=== PATIENT | female | born 1940 | race Caucasian/White ===

== ENCOUNTER 2017-12-24 13:09 | Emergency (ER) | payer OTHER, BC ==
--- NOTE | 2017-12-24 13:36 | EDPHY ---
H & P Time Seen by Provider: 12/24/17 13:19 HPI/ROS: This patient sustained a left knee/leg injury from stepping backward off a ladder yesterday. She explains that she thought she was on the 1st rung of a ladder when she was actually the 2nd rung and was surprised to step back much further than anticipated causing hyper extension injury of the left knee with abrupt pain to the lateral aspect of the knee at the joint line radiating into the lateral leg. Since that time she has had ongoing mild leg pain at any pain at baseline becomes 9/10 severity with weight-bearing. She took aspirin this morning at 8:00 a.m. And again at noon with minimal relief and notes no other exacerbating factors. Her friend drove her here by private vehicle for further evaluation of the symptoms ROS: Neuro: No numbness or tingling. No head injury. Musculoskeletal: No neck or back pain Pulmonary: No chest wall pain, shortness of breath. Cardiovascular: No lightheadedness. Integumentary: No lacerations abrasions from her fall. 7 point ROS is otherwise negative. Past Medical/Surgical History: Left hip replacement SVT with ablation Depression Smoking Status: Former smoker Physical Exam: General Appearance: Alert, no distress. Eyes: Pupils equal and round no pallor or injection. ENT, Mouth: Mucous membranes moist. Respiratory: There are no retractions, lungs are clear to auscultation. Cardiovascular: Regular rate and rhythm. Gastrointestinal: Abdomen is soft and nontender, no masses, bowel sounds normal. Neurological: GCS 15 with no focal deficits. Skin: Warm and dry, no rashes. Musculoskeletal: Neck is supple nontender. Extremities are symmetrical, full range of motion. Exception of the left lower extremity. Left lower extremity: Patient has lateral left knee pain at the joint line with slight swelling. She has associated tenderness at the same area. Her tenderness extends down the entire left lateral leg. Van's exam is negative for laxity. Varus and valgus stress without laxity or pain. Psychiatric: Patient is oriented X 3, there is no agitation. DIFFERENTIAL DIAGNOSIS: After history and physical exam differential diagnosis was considered for tibial plateau fracture, fibular fracture, meniscal injury, muscle strain, ligamentous injury, contusion Constitutional: Initial Vital Signs Temperature (C) 36.7 C 12/24/17 13:18 Heart Rate 71 12/24/17 13:18 Respiratory Rate 18 12/24/17 13:18 Blood Pressure 152/50 H 12/24/17 13:18 O2 Sat (%) 93 12/24/17 13:18 O2 Delivery Mode Room Air Allergies/Adverse Reactions: No Known Allergies Allergy (Unverified 12/24/17 13:16) Home Medications: Medication Instructions Recorded Atorvastatin Calcium 12/24/17 Gabapentin 12/24/17 Lexapro 12/24/17 Meloxicam 12/24/17 traZODone 12/24/17 MDM/Departure - MDM Diagnostics: Three-view knee x-rays: Minimal DJD. Otherwise normal by my interpretation Tib-fib x-rays: Normal by my interpretation. Imaging Results: Imaging Impressions Knee X-Ray 12/24/17 13:30 Impression: 1. No definite fracture. 2. Mild osteoarthritis left knee. 3. Chondrocalcinosis. Tibia/Fibula X-Ray 12/24/17 13:31 Impression: No fracture of the left tibia or fibula. Imaging: I viewed and interpreted images myself ED Course/Re-evaluation: Patient declined analgesics here. We placed her in a neoprene knee brace, gave her crutches and crutch instructions Discussion: Patient here with knee hyper extension injury with inability to bear weight due to pain with weight-bearing with minimal discomfort at rest. No evidence of bony injury by radiographs or significant ligamentous injury by knee exam. Patient may have meniscal injury. Other possibilities in the differential diagnosis could be occult fracture. Will plan to send her home with nonweightbearing status with follow up with Dr. Velez-orthopedic physician on-call for further evaluation. - Depart Disposition: Home, Routine, Self-Care Clinical Impression: Knee hyperextension injury Qualifiers: Encounter type: initial encounter Laterality: left Qualified Code(s): S89.82XA - Other specified injuries of left lower leg, initial encounter Condition: Good Instructions: Crutch Instructions (ED) Additional Instructions: Diagnosis: Knee hyper extension injury Plan: Knee brace when up and about Tylenol and/or ibuprofen for pain if needed. Crutches-nonweightbearing until he follow up with Dr. Fraser-orthopedic physician for further evaluation. Return emergency department for any significant worsening despite treatment plan. Referrals: Vicky Llamas MD [Primary Care Provider] - As per Instructions Stevie Fraser MD [Medical Doctor] - As per Instructions
[2017-12-24] MEDS ORDERED: ACETAMINOPHEN 325 MG TAB PO ONE (14:57)
[2017-12-24 15:17] VITALS: BP 98/70
== END 2017-12-24 15:00 | disposition home or self-care (01) ==
LOC: CED 13:09
DX: S89.82XA Other specified injuries of left lower leg, initial encounter (principal); Z87.891 Personal history of nicotine dependence; W11.XXXA Fall on and from ladder, initial encounter
CPT/HCPCS: 73562; 73590; 99283; L1830

== ENCOUNTER → 2017-12-31 | Outpatient (CLI) | payer OTHER, BC | LOC: FIMAGING 13:57 | PROVIDERS: ATTEND Podiatrist Foot & Ankle Surgery | DX: M21.70 Unequal limb length (acquired), unspecified site (principal); Z96.643 Presence of artificial hip joint, bilateral ==

== ENCOUNTER → 2018-07-02 | Outpatient (CLI) | payer OTHER, BC | LOC: BHCLAF 13:15 | PROVIDERS: ATTEND Internal Medicine Cardiovascular Disease | DX: I25.10 Atherosclerotic heart disease of native coronary artery without angina pectoris (principal); R01.1 Cardiac murmur, unspecified | CPT/HCPCS: 93306-PO ==

== ENCOUNTER 2018-09-07 18:24 | Emergency (ER) | payer BC, OTHER ==
[2018-09-07] MEDS ORDERED: NS 1,000 ML IV ONE (19:04)
[2018-09-07] MEDS ORDERED: ACETAMINOPHEN 500 MG TAB PO ONE (19:08)
--- NOTE | 2018-09-07 19:10 | EDPHY ---
H & P Stated Complaint: N/D body aches, BUENO 2 days Time Seen by Provider: 09/07/18 18:34 HPI/ROS: This patient complains of"feeling lousy". She explains that she developed a combination of bothersome symptoms over the past 3 days consisting of mild by frontal headache, myalgias, low-grade fevers -99 at home, fatigue myalgias, loose watery stools 3-4 episodes a day and nausea without vomiting. She also reports onset of midline lumbar pain that is mild intensity-3/10 to 4/10. Her recent history is notable for an lumbar fusion on August 15 3 weeks ago without complications and she reports that her symptoms in her back and completely resolved prior to the past few days. She is concerned about potential infection at the back surgical site. ROS: Constitutional: No high fevers or chills HEENT: She denies any nasal congestion. No sore throat. Pulmonary: No cough or shortness of breath. Cardiovascular: No heart palpitations or lightheadedness. GI: No abdominal pain. She does have mild nausea. Loose stools 3-4 day over the past few days. : She reports a change in her urinary stream-less strong than usual without obvious dysuria. No flank pain. No hematuria Integumentary: No skin rash 10 point review of symptoms is performed and otherwise negative with exception of pertinent positives and negatives listed in HPI and ROS Source: Patient Exam Limitations: No limitations - Personal History Current Tetanus Diphtheria and Acellular Pertussis (TDAP): Yes - Medical/Surgical History Hx Asthma: No Hx Chronic Respiratory Disease: No Hx Diabetes: No Hx Cardiac Disease: Yes Hx Renal Disease: No Hx Cirrhosis: No Hx Alcoholism: No Hx HIV/AIDS: No Hx Splenectomy or Spleen Trauma: No Other PMH: LT and RT HIP REPLACED, ANTERIOR APPROACH, QUAD WEAK. ABLATION FOR SVT 2008. HX DEPRESSION, high cholestrol, osteoarthritis, spinal fusion . - Family History Significant Family History: No pertinent family hx - Social History Smoking Status: Former smoker Alcohol Use: None Drug Use: None - Physical Exam Exam: General Appearance: Alert, no distress. Eyes: Pupils equal and round no pallor or injection. ENT, Mouth: Mucous membranes moist. Respiratory: There are no retractions, lungs are clear to auscultation. Cardiovascular: Regular rate and rhythm. Gastrointestinal: Abdomen is soft and nontender, no masses, bowel sounds normal. Neurological: GCS 15 Skin: Warm and dry, no rashes. Musculoskeletal: Neck is supple nontender. Extremities are symmetrical, full range of motion. Psychiatric: Mood and affect are normal DIFFERENTIAL DIAGNOSIS: After history and physical exam differential diagnosis was considered for viral illness, UTI, myocardial ischemia, surgical site infection Constitutional: Initial Vital Signs Temperature (C) 36.6 C 09/07/18 18:39 Heart Rate 71 09/07/18 18:39 Respiratory Rate 18 09/07/18 18:39 Blood Pressure 179/82 H 09/07/18 18:39 O2 Sat (%) 94 09/07/18 18:39 O2 Delivery Mode Room Air Allergies/Adverse Reactions: No Known Allergies Allergy (Unverified 12/24/17 13:16) Home Medications: Medication Instructions Recorded Atorvastatin Calcium 12/24/17 Gabapentin 12/24/17 Lexapro 12/24/17 Meloxicam 12/24/17 traZODone 12/24/17 Aspirin 09/07/18 Medical Decision Making - Diagnostics EKG Interpretation: 12 lead EKG performed shortly after arrival -indication fatigue reveals sinus rhythm at 56 Intervals: Normal throughout [place]: P of 45, QRS of 90, T of 53 Overall assessment sinus rhythm with right axis deviation ED Course/Re-evaluation: Patient declined medications other than Tylenol for headache with improvement Labs: Normal CBC with exception of a differential that showed slight increase in percentage of eosinophils. ESR is normal, basic metabolic panel normal, UA dip is normal Discussion: I suspect this patient has early viral illness and some anxiety. I do not think she has surgical site infection based on clinical findings and labs. Counseled regarding this. We also ruled out UTI. The think she has acute myocardial ischemic then given normal EKG and lack of other symptoms. Plan is to discharge her on Zofran if needed for nausea, Tylenol for discomfort. She understands need to return should she develop any significant worsening despite treatment plan. She will follow up with primary care physician for any ongoing symptoms - Data Points Laboratory Results: Laboratory Results 09/07/18 19:25 09/07/18 09/07/18 19:40 19:25 Hct 36.9 % L % (38.0-47.0) ESR 14 MM/HR MM/HR (0-30) POC Sodium 142 mEq/L mEq/L (135-145) POC Potassium 4.1 mEq/L mEq/L (3.3-5.0) POC Chloride 98.0 mEq/L mEq/L (97-110) POC Total CO2 27 mEq/L mEq/L (22-31) POC BUN 11 mg/dL mg/dL (7-23) POC Creatinine 0.7 mg/dL mg/dL (0.6-1.0) POC Glucose 83 mg/dL mg/dL (70-100) POC Calcium 9.4 mg/dL mg/dL (8.5-10.4) Medications Given: Discontinued Medications Acetaminophen (Tylenol) 1,000 mg PO EDNOW ONE Stop: 09/07/18 19:09 Last Admin: 09/07/18 19:46 Dose: 1,000 mg Sodium Chloride (Ns) 1,000 mls @ 0 mls/hr IV EDNOW ONE; Wide Open PRN Reason: Protocol Stop: 09/07/18 19:05 Last Admin: 09/07/18 19:31 Dose: 1,000 mls Point of Care Test Results: CBC CBC Collection Date 09/07/18 CBC Collection Time 19:25 WBC 5.91 RBC 3.88 HGB 12 HCT 36.3 PLT 306 Neut # 3.14 Neut 53.1 LYMPH # 1.73 LYMPH 29.3 MCV 93.6 Chemistry 09/07/18 19:40 POC Sodium 142 mEq/L mEq/L (135-145) POC Potassium 4.1 mEq/L mEq/L (3.3-5.0) POC Chloride 98.0 mEq/L mEq/L (97-110) POC Total CO2 27 mEq/L mEq/L (22-31) POC BUN 11 mg/dL mg/dL (7-23) POC Creatinine 0.7 mg/dL mg/dL (0.6-1.0) POC Glucose 83 mg/dL mg/dL (70-100) POC Calcium 9.4 mg/dL mg/dL (8.5-10.4) Urine Dip Collection Date 09/07/18 Collection Time 19:40 Specific [place] (1.002-1.030) 1.015 PH (5.0-7.5) 7.0 Leukocytes (Negative) Negative Nitrites (Negative) Negative Protein (Negative) Negative Glucose (Negative) Negative Ketones (Negative) Negative Urobilnogen (0.2-1.0 EU) 0.2 Bilirubin (Negative) Negative Blood (Negative) Negative Departure - Departure Disposition: Home, Routine, Self-Care Clinical Impression: Tension headache, Myalgia Fatigue Qualifiers: Fatigue type: unspecified Qualified Code(s): R53.83 - Other fatigue Condition: Good Instructions: Ondansetron (By mouth), Tension Headache (ED), Musculoskeletal Pain (ED) Additional Instructions: Diagnosis: Tension headache 2. Myalgias 3. Fatigue You're blood count is normal exception of slight increase in eosinophils there is associated with allergies. Your EKG appears normal tonight. Your metabolic panel, urinalysis and ESR are all normal tonight. We see no evidence of surgical site infection, urinary tract infection or other "red flag " findings. It is possible that you may have an early viral illness causing his symptoms. Plan: Zofran if needed for nausea vomiting Tylenol if needed for headaches. Drink plenty fluids Follow up with your primary care physician in your back surgeon for any ongoing symptoms. Return emergency department for any significant or worsening despite treatment plan Referrals: Vicky Llamas MD [Primary Care Provider] - As per Instructions
[2018-09-07] MEDS ORDERED: ONDANSETRON 4MG PREPACK#2 BTL TAKEHOME ONE (21:42)
--- NOTE | 2018-09-07 21:58 | CPEKG ---
Test Reason : OPEN Blood Pressure : / mmHG Vent. Rate : 056 BPM Atrial Rate : 056 BPM P-R Int : 157 ms QRS Dur : 101 ms QT Int : 440 ms P-R-T Axes : 045 090 053 degrees QTc Int : 425 ms Sinus rhythm Borderline right axis deviation Confirmed by Gena Crockett ([id number]) on 09/07/2018 9:58:06 PM Referred By: GENA CROCKETT Confirmed By:Gena Crockett
[2018-09-07 22:07] VITALS: BP 139/94
== END 2018-09-07 22:18 | disposition home or self-care (01) ==
LOC: CED 18:24
DX: G44.209 Tension-type headache, unspecified, not intractable (principal); M79.10 Myalgia, unspecified site; R53.83 Other fatigue; E86.9 Volume depletion, unspecified; E78.5 Hyperlipidemia, unspecified; F32.9 Major depressive disorder, single episode, unspecified; Z87.891 Personal history of nicotine dependence; Z96.643 Presence of artificial hip joint, bilateral; Z98.1 Arthrodesis status
CPT/HCPCS: 80048-ER; 96360-ER; 99284-ER

== ENCOUNTER → 2018-11-12 | Outpatient (CLI) | payer OTHER, BC | LOC: FCPNEURO 20:30 | PROVIDERS: ATTEND Student in an Organized Health Care Education/Training Program | DX: G47.33 Obstructive sleep apnea (adult) (pediatric) (principal) ==